=== PATIENT | female | born 2000 | race Two or more races ===

== ENCOUNTER 2024-01-13 08:06 | Emergency (ER) | payer OTHER, SELFPAY ==
--- NOTE | ~2024-01-13 | US_ITS ---
EXAMINATION: OBSTETRIC ULTRASOUND - SECOND TRIMESTER CLINICAL INFORMATION: Vaginal bleeding. 4 month . LMP unknown. COMPARISON: None. TECHNIQUE: Transabdominal imaging of the uterus was performed utilizing umana scale and color doppler technique, with m-mode imaging. FINDINGS: Single live intrauterine fetus in the breech position with cardiac activity detected at 152 bpm. Posterior placenta. No perigestational hemorrhage. Cervix measures 3 cm and is closed. The examination is limited and is not targeted for assessment of a detail anatomy; the following biometric measurements were obtained: Head circumference: 16.22 cm corresponding to gestational age of 19 weeks and 0 days. Abdominal circumference: 12.92 cm corresponding to a gestational age of 18 weeks and 4 days. Femur length: 2.85 cm corresponding to gestational age of 18 weeks and 6 days. The maternal ovaries are normal in morphology. The right ovary measures 3.3 x 1.5 x 2 cm and the left ovary measures 1.6 x 0.5 x 1.7 cm. US/US OB limited IMPRESSION: Single live intrauterine fetus with estimated gestational age by ultrasound of 18 weeks and 6 days.
[2024-01-13 08:21] VITALS: BP 92/60; PULSE 79; RESP 16; TEMP 36.4; O2SAT 97; BMI 24.3
--- NOTE | 2024-01-13 08:25 | ED_ITS ---
HPI - General Chief complaint: Vaginal Bleeding Stated complaint: 4mo vaginal bleeding Time Seen by Provider: 01/13/24 08:20 Source: patient Mode of arrival: ambulatory History of Present Illness HPI Narrative: 23-year-old female who presents stating that she is 4 months , , unknown last menstrual period, current diagnosed in [facility], states that she was seen here at this hospital but can not remember when, has not received care. Patient reports that she woke up this morning with blood on her underwear, denies any clots and reports some mild lower abdominal cramping, denies urinary symptoms/fevers/chills/nausea/vomiting. Related Data Allergies Allergy/AdvReac Type Severity Reaction Status Date / Time No Known Allergies Allergy Verified 01/13/24 08:24 Review of Systems 2 Review of Systems: Pertinent positives and negatives as stated in HPI PMFSH Past Medical History Source: nursing notes reviewed Social History Social History Smoked in Last 30 Days: No Use of substances other than those prescribed or required for medical reasons: No Advance Directives: No Do you have a plan to hurt others: No Plan Patient : Yes Physical Exam 2 Vital Signs: Vital Signs: Last Vital Signs Temp 97.6 F 01/13/24 08:21 Pulse 57 01/13/24 10:00 Resp 16 01/13/24 08:21 BP 105/62 01/13/24 10:00 Pulse Ox 100 01/13/24 10:00 O2 Del Method Room Air 01/13/24 10:00 BMI result Body Mass Index 24.3 VITAL SIGNS: Reviewed. GENERAL: Well developed, well nourished, in no acute distress. HEAD: Normocephalic/atraumatic EYES: PERRLA, EOMI LUNGS: Normal breath sounds. No adventitious sounds or accessory muscle use. SpO2<97> CARDIOVASCULAR: Regular rate and rhythm without noted murmurs ABDOMEN: Soft, non-tender, non-distended with bowel sounds. MUSCULOSKELETAL: No tenderness, deformities, or effusions noted on gross inspection. EXTREMITIES: No cyanosis, clubbing or edema. SKIN: Inspection of the skin reveals no rashes NEUROLOGIC: Alert and oriented x 4. Strength and sensation to light touch were grossly intact x 4. Medical Decision Making Medical Decision Making [facility] Narrative: 23-year-old female with history and clinical presentation, DDX: , SAB, urinary tract infection, ectopic I reviewed all investigations and hematologic indices are negative for leukocytosis, there is a microcytic anemia likely associated with , no thrombocytopenia. Chemistry indices do not demonstrate an SHAR or electrolyte/liver enzyme derangements, beta [id number]. Urinalysis negative for UTI but there is presence of blood consistent with patient's history. Ultrasound identifies IUP at 18.6. There is no evidence of perigestational hemorrhage. Cervix is 3 cm and closed. Tylenol was provided to the patient. 1146: I am reaching out to [facility] to speak with obstetrics as patient is 18 weeks with vaginal bleeding and lower abdominal cramping without acute findings on ultrasound. 1159: I discussed the case with Dr. Carrillo, obstetrics at [facility], who does not recommend further evaluation within the acute care setting and recommends following up outpatient with bleeding precautions and pain precautions. Differential Diagnosis Differential Diagnoses: The differential diagnosis associated with the presentation includes Please see the discussion above Admission/Observation Consideration of admission/observation: Escalation of care including admission/observation considered Please see the discussion above Consult Healthcare Provider Management of the patient was discussed with: Animal Control Specialist Please see the discussion above Lab Data [facility] Lab Attestation statement: I reviewed the patient's lab results. Please see the discussion above 01/13/24 08:55 01/13/24 08:55 Labs: Lab Results 01/13/24 01/13/24 Range/Units 08:41 08:55 WBC 10.6 (4.8-10.8) X10*3/uL RBC 3.96 L (4.20-5.50) X10*6/uL Hgb 10.5 L (12.0-16.0) g/dl Hct 31.4 L (37.0-47.0) % MCV 79.3 L (80.0-98.0) fL MCH 26.5 L (27.0-33.0) pg MCHC 33.4 (31.0-35.0) g/dl RDW 14.6 (11.0-16.0) % Plt Count 180 (160-400) X10*3/uL MPV 12.0 (9.4-12.3) fL Immature Gran % (Auto) 0.4 (0.0-0.4) % Neut % (Auto) 74.4 H (45-73) % Lymph % (Auto) 18.5 L (20-40) % Fisher % (Auto) 5.9 (2-11) % Eos % (Auto) 0.6 (0-4) % Baso % (Auto) 0.2 (0-2) % Lymph # (Auto) 2.0 (1.2-4.9) X10*3/uL Fisher # (Auto) 0.6 (0.1-1.2) X10*3/uL Eos # (Auto) 0.1 (0.0-0.4) X10*3/uL Baso # (Auto) 0.0 (0.0-0.2) X10*3/uL Abs Immat Gran (auto) 0.04 H (0.00-0.03) X10*3/uL Absolute Neuts (auto) 7.9 (2.0-8.3) x10*3/uL Absolute Nucleated RBC 0.000 (0.0-0.012) X10*3/uL Nucleated RBC % (auto) 0.0 (0.0-0.2) /100WBC Sodium 136 (135-145) mmol/L Potassium 3.8 (3.3-5.1) mmol/L Chloride 108 (96-108) mmol/L Carbon Dioxide 18 L (22-29) mmol/L Anion Gap 14 (12-20) BUN 6 L (9-16) mg/dL Creatinine 0.56 (0.5-1.4) mg/dL Estim Creat Clear Calc 160.2 Estimated GFR > 60 Random Glucose 85 (60-115) mg/dL Calcium 8.6 (8.4-10.2) mg/dL Total Bilirubin 0.1 (0.0-1.0) mg/dL AST 15 (5-31) U/L ALT 9 (0-31) U/L Alkaline Phosphatase 49 (39-117) U/L Total Protein 6.8 (6.5-8.0) g/dL Albumin 3.6 (3.5-5.0) g/dL Beta HCG, Quant 79812 mIU/mL Urine Color Yellow Urine Appearance Cloudy Urine pH 6.5 (5.0-9.0) Ur Specific [place] 1.015 (1.005-1.025) Urine Protein Negative (Neg-Trace) mg/dL Urine Glucose (UA) Negative (Negative) mg/dL Urine Ketones Negative (Negative) mg/dL Urine Blood Large (3+) H (Negative) Urine Nitrite Negative (Negative) Ur Leukocyte Esterase Trace H (Negative) Urine RBC 0-2 (0-2) /HPF Urine WBC 0-5 (0-5) /HPF Ur Squamous Epith Cells 11-20 (0-2) /HPF Urine Bacteria Trace (None Seen) Hyaline Casts 0-2 (0-2) /LPF Urine Test POSITIVE H (NEGATIVE) Blood Type O Positive Radiology Impression Discussion of test interpretation with radiology: I have reviewed the radiologist's reading. Radiologist Impression: Please see the discussion above Critical Care Time Critical Care Time Critical Care Time: Yes Total Critical Care Time: 60 Attestation: I personally attest to this time spent taking care of the patient. Discharge Plan Discharge Clinical Impression: Vaginal bleeding, Patient Disposition: Home, Self-Care Instructions: at 15 to 18 Weeks (ED) Additional Instructions: Please establish care at your earliest convenience, continue with vitamins, you may use Tylenol for abdominal discomfort. Stay well hydrated. Please go to the emergency room if you began having significant amount of bleeding that saturates a pad per hour. Also, please come to the emergency room if you began developing abdominal pain that it has not improved with Tylenol. Please return to the emergency room if you develop fevers or chills. Referrals: [facility] [Primary Care Provider] - Print Language: Maltese
[2024-01-13 08:51] LABS: Appearance Urine Cloudy; Color Urine Yellow; Glucose Urine UA Negative (Negative); Leukocyte Esterase Urine Trace (Negative); Nitrite Urine Negative (Negative); PH 6.5 (5.0-9.0); Specific Gravity - Urine 1.015 (1.005-1.025); UMIC TRIGGER UACC YES; Urine Blood Large (3+) (Negative); Urine Ketones Negative (Negative); Urine Protein Negative (Neg-Trace)
[2024-01-13 09:00] LABS: MANUAL DIFF FLAG NO
[2024-01-13 09:01] LABS: Basophils Percent Auto 0.2 % (0-2); Eosinophils Absolute Auto 0.1 X10*3/uL (0.0-0.4); Eosinophils Percent Auto 0.6 % (0-4); Hematocrit 31.4 % (37.0-47.0); Hemoglobin 10.5 g/dl (12.0-16.0); Imm Gran Abs Auto 0.04 X10*3/uL (0.00-0.03); Imm Gran Pct Auto 0.4 % (0.0-0.4); Lymphocytes Percent Auto 18.5 % (20-40); Mean Corpuscular HGB Conc 33.4 g/dl (31.0-35.0); Mean Corpuscular Hemoglobin 26.5 pg (27.0-33.0); Mean Corpuscular Volume 79.3 fL (80.0-98.0); Monocytes Absolute Auto 0.6 X10*3/uL (0.1-1.2); Monocytes Percent Auto 5.9 % (2-11); Neutrophils Absolute Auto 7.9 x10*3/uL (2.0-8.3); Neutrophils Percent Auto 74.4 % (45-73); Platelet Count 180 X10*3/uL (160-400); Red Blood Count 3.96 X10*6/uL (4.20-5.50); Red Cell Distribution Width 14.6 % (11.0-16.0); White Blood Count 10.6 X10*3/uL (4.8-10.8)
[2024-01-13 09:06] LABS: UPreg QC Valid YES; Urine Pregnancy POSITIVE (NEGATIVE)
[2024-01-13 09:28] LABS: Bacteria Urine Trace (None Seen); Hyaline Casts Urine 0-2 /LPF (0-2); RBC Urine 0-2 /HPF (0-2); WBC Urine 0-5 /HPF (0-5)
[2024-01-13 09:29] LABS: Alanine Aminotransferase 9 U/L (0-31); Albumin Level 3.6 g/dL (3.5-5.0); Alkaline Phosphatase 49 U/L (39-117); Anion Gap 14 (12-20); Aspartate Amino Transferase 15 U/L (5-31); Bilirubin Total 0.1 mg/dL (0.0-1.0); Blood Urea Nitrogen 6 mg/dL (9-16); Calcium 8.6 mg/dL (8.4-10.2); Carbon Dioxide 18 mmol/L (22-29); Chloride 108 mmol/L (96-108); Creatinine Clr Calc Pharmacy 160.2; Estimated Glomerular Filt Rate > 60; Glucose Random 85 mg/dL (60-115); Potassium 3.8 mmol/L (3.3-5.1); Sodium 136 mmol/L (135-145); Total Protein 6.8 g/dL (6.5-8.0)
[2024-01-13 09:44] LABS: HCG Quantitative 23601 mIU/mL
[2024-01-13 10:00] VITALS: BP 105/62; PULSE 57; O2SAT 100
[2024-01-13 12:30] VITALS: BP 110/63; PULSE 86; RESP 16; O2SAT 99
[2024-01-13] MEDS: Acetaminophen 325 MG TABLET 975 MG PO (12:31)
[2024-01-13 12:44] VITALS: BP 110/63; PULSE 86; RESP 16; TEMP 36.4; O2SAT 99
== END 2024-01-13 12:45 | disposition home or self-care (01) ==
PROVIDERS: Emergency Provider Student in an Organized Health Care Education/Training Program
DX: O26.852 Spotting complicating pregnancy, second trimester (principal); Z3A.18 18 weeks gestation of pregnancy
CPT/HCPCS: 36415; 76815; 80053; 81001; 81025; 84702; 85025; 86900; 86901; 99284